=== PATIENT | female | born 1935 | race Caucasian/White ===

== ENCOUNTER 2016-09-02 12:46 | Emergency (ER) | payer MEDICARE, OTHER ==
[~2016-09-02] VITALS: Ht 152.4 cm; Wt 68.0 kg
[~2016-09-02 12:46] MED LIST: AMLODIPINE BESYL5 MG ORAL; ASPIR 8181 MG ORAL; COLACE100 MG ORAL; CYCLOBENZAPRINE10 MG ORAL; HYDROCHLOROTH12.5 M2 ORAL; NKM; NORCO 5-325 TA1 EACH ORAL; ULTRAM50 MG ORAL; ZANTAC150 MG ORAL
[2016-09-02 13:19] VITALS: BP 155/77
[2016-09-02] MEDS ORDERED: Aspirin Baby 81mg ORAL ONE (14:00)
[2016-09-02] MEDS ORDERED: Albuterol ud Inhalation HHN ONE (14:00)
[2016-09-02 14:04] VITALS: BP 149/67
[2016-09-02] MEDS ORDERED: AMOXICILLIN500 MG ORAL (14:39)
[2016-09-02] MEDS ORDERED: ADULT WAL-100 MG/5 M ORAL (14:39)
--- NOTE | 2016-09-02 14:40 | Diagnostic Imaging Report ---
Indication: SOB Technique: One view of the chest Comparison: none Findings: No acute infiltrates, effusions, or congestion. Tortuous calcified aorta. Normal heart size. Upper mediastinum unremarkable. No significant change Impression: No acute process.
[2016-09-02 15:06] LABS: BASOPHILS % (AUTO) 1.8 % (0.0-2.0); EOSINOPHILS % (AUTO) 8.1 % (0.0-3.0); LYMPHOCYTES % (AUTO) 17.8 % (20.0-45.0); MEAN CORPUSCULAR HEMOGLOBIN 28.7 PG (27.0-31.0); MEAN CORPUSCULAR HGB CONC 32.6 G/DL (32.0-36.0); MEAN CORPUSCULAR VOLUME 88 FL (80-99); MEAN PLATELET VOLUME 7.7 FL (6.5-10.1); MONOCYTES % (AUTO) 7.2 % (1.0-10.0); NEUTROPHILS % (AUTO) 65.1 % (45.0-75.0); PLATELET COUNT 222 K/UL (150-450); RED BLOOD COUNT 4.53 M/UL (4.20-5.40); RED CELL DISTRIBUTION WIDTH 12.3 % (11.6-14.8); WHITE BLOOD COUNT 6.6 K/UL (4.8-10.8)
[2016-09-02 15:16] LABS: ALANINE AMINOTRANSFERASE 16 U/L (3-33); ALBUMIN/GLOBULIN RATIO 1.2 (1.0-2.7); ANION GAP 15 (5-15); ASPARTATE AMINO TRANSFERASE 21 U/L (5-40); CALCIUM 8.8 mg/dL (8.6-10.2); CARBON DIOXIDE 27 mEQ/L (20-30); CHLORIDE 100 mEQ/L (98-107); CREATININE 0.6 mg/dL (0.5-0.9); HEMOLYSIS 45; SODIUM 142 mEQ/L (135-145); TOTAL PROTEIN 6.6 g/dL (6.6-8.7); TROPONIN I < 0.30 ng/mL (<=0.30)
[2016-09-02 15:27] LABS: CKMB 1.7 ng/mL (< 3.8)
[2016-09-02 15:40] VITALS: BP 132/48
--- NOTE | 2016-09-03 13:58 | Emergency Room Report ---
History of Present Illness General Chief Complaint: Upper Respiratory Illness Source: Patient Present Illness HPI Patient is a 81-year-old female who presented after increased nasal congestion and cough. Patient remained episodes of increased cough. Patient had recently been having some sick contacts. She denied any fever. Patient reported having intermittent difficulty breathing during coughing episodes. She denied any leg swelling or pain. Patient denied any chest pain. Nor the Allergies: Coded Allergies: No Known Allergies (Verified Allergy, Unknown, 05/20/07) Patient History Last Menstrual Period: na Reviewed Nursing Documentation: PMH: Agreed, PSxH: Agreed Nursing Documentation-PMH Past Medical History: No History, Except For Hx Cardiac Problems: Yes - heart murmur Hx Hypertension: Yes Hx Diabetes: Yes Review of Systems All Other Systems: negative except mentioned in HPI Physical Exam Vital Signs Date Time Temp Pulse Resp B/P Pulse Ox O2 Delivery O2 Flow Rate FiO2 09/02/16 12:53 99.1 78 22 155/77 95 Room Air General Appearance: well appearing, no apparent distress, alert, GCS 15 Head: normocephalic, atraumatic ENT: hearing grossly normal, normal voice Neck: full range of motion, supple Respiratory: lungs clear, normal breath sounds, no rhonchi, no respiratory distress, speaking full sentences Cardiovascular #1: normal inspection, regular rate, rhythm Musculoskeletal: no calf tenderness Neurologic: normal gait Psychiatric: mood/affect normal Skin: no rash Medical Decision Making Diagnostic Impression: Primary Impression: Upper respiratory infection ER Course Patient presented for cough. Differential diagnosis included but was not limited to bronchitis, pneumonia, pulmonary embolism, pericarditis, asthma, foreign body. Because of complexity of patient's case laboratory testing and imaging studies were ordered.Laboratory studies are notable for normal white blood count.Patient had a relatives had recent strep pharyngitis and patient was given prescription for oral antibiotics. Electrolyte panel is unremarkable . Chest x-ray read by radiologist showed no evident infiltrate with normal cardiac size normal mediastinum. Chest X-Ray Diagnostic Results EP Interpretation: Yes Findings: no consolidation, no effusion, no pneumothorax, no acute cardiopulmonary disease Number of Views: 1 Last Vital Signs Date Time Temp Pulse Resp B/P Pulse Ox O2 Delivery O2 Flow Rate FiO2 09/02/16 15:40 99.1 69 18 132/48 100 Room Air Status: improved Disposition: HOME, SELF-CARE Condition: Stable Scripts Amoxicillin* (AMOXIL*) 500 Mg Capsule 500 MG ORAL THREE TIMES A DAY, #21 CAP Prov: Steven Davila 09/02/16 Guaifenesin* (ADULT WAL-TUSSIN*) 100 Mg/5 Ml Liquid 10 ML ORAL Q4H, #120 ML Prov: Steven Davila 09/02/16 Referrals: YVON HAYES (PCP) Patient Instructions: Upper Respiratory Infection, Adult Steven Davila Sep 03, 2016 13:58
== END 2016-09-02 15:43 | disposition home or self-care (01) ==
LOC: EMR 13:29
DX: J06.9 Acute upper respiratory infection, unspecified (principal); E11.9 Type 2 diabetes mellitus without complications; I10 Essential (primary) hypertension; R01.1 Cardiac murmur, unspecified
CPT/HCPCS: 36415; 71010; 80053; 82550; 82553; 83880; 84484; 85025; 93005; 94640; 94664; 96374; 99284; J1940